=== PATIENT | female | born 1980 | race Caucasian/White ===

== ENCOUNTER 2017-07-21 12:29 | Emergency (ER) | payer OTHER ==
[2017-07-21 12:37] VITALS: TEMP 98.2
--- NOTE | 2017-07-21 13:01 | EDPHY ---
H & P Time Seen by Provider: 07/21/17 12:54 HPI/ROS: CHIEF COMPLAINT: Left facial weakness HISTORY OF PRESENT ILLNESS: This patient is a 36 y/o female complaining of left-sided facial weakness and difficulty swallowing onset this morning. While eating breakfast, she noted difficulty swallowing and states she felt her mouth was swollen. She was able to swallow adequately, but felt swallowing took extra effort. She took her children to school, and noticed some numbness on the left side of her face and then facial asymmetry in the mirror. She felt she was unable to move her face as well on the left as on the right. By lunchtime, the odd sensation with swallowing resolved, but the facial asymmetry remained. Associated with two quick "spiky" moderate headaches lasting around 10 seconds each. She had a cold over the weekend and has a sore on her tongue which she thinks may be related to her cold. She denies any tinnitus. No weakness or numbness in arms or legs, fever, chest pain, shortness of breath, urinary complaints, or other associated symptoms. REVIEW OF SYSTEMS: A 10 point review of systems was performed and is negative with the exception of the elements mentioned in the history of present illness. Past Medical/Surgical History: Denies, takes iron and herbal supplements. Social History: Marred. Lives in [place]. Nonsmoker. Smoking Status: Never smoked Physical Exam: General Appearance: Alert, no distress Eyes: Pupils equal and round, no conjunctival pallor or injection ENT, Mouth: Small lesion to tip of tongue. Mucous membranes moist Neck: Normal inspection Respiratory: Lungs are clear to auscultation Cardiovascular: Regular rate and rhythm Gastrointestinal: Abdomen is soft and non- tender Neurological: Alert, oriented x3, cranial nerves intact except VII: left-sided facial weakness that involves the forehead. Motor 5/5, sensory intact to light touch Skin: Warm and dry, no rash Extremities: Nontender, no pedal edema Psychiatric: Mood and affect normal Constitutional: Initial Vital Signs Temperature (C) 36.8 C 07/21/17 12:35 Heart Rate 93 07/21/17 12:35 Respiratory Rate 16 07/21/17 12:35 Blood Pressure 145/81 H 07/21/17 12:35 O2 Sat (%) 99 07/21/17 12:35 O2 Delivery Mode Room Air Allergies/Adverse Reactions: No Known Allergies Allergy (Unverified 07/21/17 12:37) Home Medications: Medication Instructions Recorded IRON 07/21/17 Valacyclovir HCl [Valtrex] 1,000 mg PO TID #21 tab 07/21/17 predniSONE 1 tab PO DAILY #15 tab 07/21/17 Medical Decision Making - Diagnostics Imaging Results: Imaging Impressions Brain MRI 07/21/17 13:07 Impression: 1. 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 Recommend ENT consultation. 2. Otherwise normal MRI of the brain without contrast. This was also reviewed by Dr. Roman Becker, who concurs. Results called and discussed with Dr. Lakshmi Milner on July 21, 2017 at 1441 hours. Imaging: Discussed imaging studies w/ inbound call center representative Radiologist ED Course/Re-evaluation: 36 y/o female presents with left-sided facial weakness and difficulty swallowing. Exam reveals left-sided weakness in the area of cranial nerve VII. Neuro exam otherwise intact. Due to the patient's difficulty swallowing, plan for MRI brain to rule out acute processes. 14:[address] Martin, radiologist. MRI is negative for acute intracranial processes. 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 Plan to discharge home in good condition with prescription for Prednisone and Valtrex for symptom relief. 14:43 Reassessed patient. Discussed MRI results. Instructions for Ramírez's palsy given. She understands she needs to follow up with otolaryngology for further evaluation of her parotid gland abnormality. Patient is comfortable with discharge and followup instructions. Differential Diagnosis: Differential diagnosis includes though is not limited to CVA, multiple sclerosis , tumor, hypoglycemia. - Data Points Laboratory Results: Laboratory Results 07/21/17 13:00 07/21/17 13:00 07/21/17 07/21/17 13:00 13:00 WBC 5.80 10^3/uL 10^3/uL (3.80-9.50) RBC 4.72 10^6/uL 10^6/uL (4.18-5.33) Hgb 15.6 g/dL g/dL (12.6-16.3) Hct 42.7 % % (38.0-47.0) MCV 90.5 fL fL (81.5-99.8) MCH 33.1 pg pg (27.9-34.1) MCHC 36.5 g/dL g/dL (32.4-36.7) RDW 12.3 % % (11.5-15.2) Plt Count 126 10^3/uL L 10^3/uL (150-400) MPV 11.7 fL fL (8.7-11.7) Neut % (Auto) 68.2 % % (39.3-74.2) Lymph % (Auto) 21.4 % % (15.0-45.0) Trigg % (Auto) 8.3 % % (4.5-13.0) Eos % (Auto) 1.6 % % (0.6-7.6) Baso % (Auto) 0.3 % % (0.3-1.7) Nucleat RBC Rel Count 0.0 % % (0.0-0.2) Absolute Neuts (auto) 3.96 10^3/uL 10^3/uL (1.70-6.50) Absolute Lymphs (auto) 1.24 10^3/uL 10^3/uL (1.00-3.00) Absolute Monos (auto) 0.48 10^3/uL 10^3/uL (0.30-0.80) Absolute Eos (auto) 0.09 10^3/uL 10^3/uL (0.03-0.40) Absolute Basos (auto) 0.02 10^3/uL 10^3/uL (0.02-0.10) Absolute Nucleated RBC 0.00 10^3/uL 10^3/uL (0-0.01) Immature Gran % 0.2 % % (0.0-1.1) Immature Gran # 0.01 10^3/uL 10^3/uL (0.00-0.10) Sodium 142 mEq/L mEq/L (134-144) Potassium 3.7 mEq/L mEq/L (3.5-5.2) Chloride 108 mEq/L mEq/L (97-110) Carbon Dioxide 20 mEq/l L mEq/l (22-31) Anion Gap 14 mEq/L mEq/L (8-16) BUN 11 mg/dL mg/dL (7-23) Creatinine 0.7 mg/dL mg/dL (0.6-1.0) Estimated GFR > 60 Glucose 109 mg/dL H mg/dL (70-100) Calcium 9.2 mg/dL mg/dL (8.5-10.4) Departure - Departure Disposition: Home, Routine, Self-Care Clinical Impression: Ramírez's palsy Condition: Good Instructions: Ramírez Palsy (ED) Additional Instructions: 1. Follow up with your primary care provider for continued evaluation. 2. Take your Valtrex and Prednisone as prescribed. Use artificial tears in your left eye. Techniques for keeping your eye protected are in the attached instructions. 3. Return to the emergency department for increased numbness or tingling, severe headache, difficulty speaking, confusion, weakness in your arms or legs, or other worsening of condition. 4. Incidentally, there is a parotid gland tumor noted on your MRI. Please follow up promptly with an ear, nose, and throat doctor for further evaluation of this. We have referred you to Dr. Tovar, ENT specialist contact lens fitter. Referrals: IRIS BILLINGSLEY [Other] - As per Instructions Guru Tovar MD [Medical Doctor] - As per Instructions Prescriptions: predniSONE 1 tab PO DAILY #15 tab Valacyclovir HCl [Valtrex] 1,000 mg PO TID #21 tab Report Scribed for: Lakshmi Enriqeuz Report Scribed by: Kathya Shea Date of Report: 07/21/17 Time of Report: 12:55 Physician Review and Approval Statement: 07/21/17 12:55 Portions of this note were transcribed by a medical microbiologist. I personally performed a history, physical exam, medical decision making, and confirmed accuracy of information the transcribed note.
[2017-07-21 14:15] LABS: PLATELET COUNT 126 10^3/uL (150-400)
[2017-07-21 15:18] VITALS: BP 128/66; PULSE 77; RESP 18; O2SAT 96
== END 2017-07-21 15:18 | disposition home or self-care (01) ==
DX: G51.0 Bell's palsy (principal)